=== PATIENT | female | born 1995 | race Two or more races ===

== ENCOUNTER 2018-08-06 20:20 | Emergency (ER) | payer MEDICAID, OTHER ==
[~2018-08-06] VITALS: Ht 157.5 cm; Wt 78.8 kg
[2018-08-06 20:44] LABS: BASOPHILS % (AUTO) 0 % (0-1); EOSINOPHILS # (AUTO) 0.14 x10^3/uL (0-0.4); EOSINOPHILS % (AUTO) 1 % (1-7); LYMPHOCYTES # (AUTO) 1.13 x10^3/uL (1-3.4); LYMPHOCYTES % (AUTO) 8 % (22-44); MD NO; MEAN CORPUSCULAR HEMOGLOBIN 27.7 pg (27.0-34.8); MEAN CORPUSCULAR HGB CONC 33.7 g/dL (32.4-35.8); MEAN CORPUSCULAR VOLUME 82.1 fL (80-100); MEAN PLATELET VOLUME 8.2 fL (7.4-10.4); MONOCYTES # (AUTO) 0.53 x10^3/uL (0.2-0.8); MONOCYTES % (AUTO) 4 % (2-9); NEUTROPHILS # (AUTO) 11.73 x10^3/uL (1.8-6.8); NEUTROPHILS % (AUTO) 87 % (42-75); PLATELET COUNT 303 x10^3/uL (130-400); RED BLOOD COUNT 4.85 x10^6/uL (3.82-5.3); RED CELL DISTRIBUTION WIDTH 15.4 % (9.6-15.2)
[2018-08-06 20:55] LABS: ALBUMIN 3.8 g/dL (3.4-5.0); ANION GAP 9 mmol/L (5-15); CHLORIDE 105 mmol/L (98-107); CREATININE 0.69 mg/dL (0.55-1.02)
[2018-08-06 21:27] LABS: T4 (THYROXINE) 8.3 mcg/dL (4.8-13.9)
[2018-08-06] MEDS ORDERED: ONDANSETRON ODT 8 MG PO ONE (21:30)
[2018-08-06 21:36] LABS: THYROID STIMULATING HORMONE 0.999 mIU/L (0.358-3.740)
[2018-08-06] MEDS ORDERED: ONDANSETRON ODT 8 MG ONE (21:36)
[2018-08-06 21:49] LABS: MICROSCOPIC NOT IND
[2018-08-06 22:02] LABS: CULTURE INDICATED? NO
[2018-08-06 22:49] VITALS: BP 101/58
== END 2018-08-06 23:04 | disposition home or self-care (01) ==
LOC: ED 22:58
DX: R55 Syncope and collapse (principal); R53.1 Weakness; R11.2 Nausea with vomiting, unspecified
CPT/HCPCS: 36415; 80048; 81003; 82040; 83735; 84436; 84443; 84702; 85025; 93005; 99284; Q0162